=== PATIENT | female | born 2000 | race Caucasian/White ===

== ENCOUNTER 2019-09-25 15:40 | Emergency (ER) | payer OTHER ==
[2019-09-25 16:36] VITALS: BP 102/71
--- NOTE | 2019-09-25 16:49 | UC ---
Throat Pain/Nasal Jose Daniel HPI - HPI Summary HPI Summary: Pt presents with c/o sudden onset of ST and fever X 1 day. - History of Current Complaint Chief Complaint: UCGeneralIllness Stated Complaint: FEVER,VOMITTING,ST,CONGESTION Time Seen by Provider: 09/25/19 16:42 Hx Last Menstrual Period: "two weeks ago" ?: No Onset/Duration: Sudden Onset, Still Present Severity: Moderate Pain Intensity: 6 Cough: None Associated Signs & Symptoms: Positive: Nasal Discharge, Fever - Epiglottits Risk Factors Epiglottis Risk Factors: Sudden Onset - Allergies/Home Medications Allergies/Adverse Reactions: Allergies Allergy/AdvReac Type Severity Reaction Status Date / Time azithromycin [From Zithromax] Allergy "Scratchy Verified 09/25/19 16:31 Throat, Rash" Home Medications: Home Medications Acetaminophen [Acetaminophen Extra Strength] 500 mg PO Q6H PRN 09/25/19 [ History Confirmed 09/25/19] Albuterol 2.5MG/3ML (0.083%)* [Ventolin 2.5 MG/3 ML NEB.BRAD*] 2.5 mg INH Q6H PRN 09/25/19 [History Confirmed 09/25/19] Albuterol HFA INHALER* [Ventolin HFA Inhaler*] 1 - 2 puff INH Q4H PRN 09/25/19 [ History Confirmed 09/25/19] Dm/PE/Acetaminophen/Doxylamine [Vicks Dayquil-Nyquil Cold-Flu] 2 cap PO Q6H PRN 09/25/19 [History Confirmed 09/25/19] Norethindrone-Ethinyl Estrad [Alyacen 1-35 28 Tablet] 1 tab PO DAILY 09/25/19 [ History Confirmed 09/25/19] PMH/Surg Hx/FS Hx/Imm Hx Previously Healthy: Yes - Surgical History Surgical History: Yes Surgery Procedure, Year, and Place: Right Elbow Tendon Repair, 2015, [place] - Family History Known Family History: Positive: Cardiac Disease - Social History Occupation: Student - [employer] Lives: Dormitory/Roommates Alcohol Use: None Substance Use Type: None Smoking Status (MU): Never Smoked Tobacco Have You Smoked in the Last Year: No - Immunization History Vaccination Up to Date: Yes Review of Systems All Other Systems Reviewed And Are Negative: Yes Constitutional: Positive: Fever Skin: Positive: Negative Eyes: Positive: Negative ENT: Positive: Sore Throat, Sinus Congestion Respiratory: Positive: Negative Cardiovascular: Positive: Negative Gastrointestinal: Positive: Negative Genitourinary: Positive: Negative Motor: Positive: Negative Neurovascular: Positive: Negative Musculoskeletal: Positive: Negative Neurological: Positive: Negative Psychological: Positive: Negative Is Patient Immunocompromised?: No Physical Exam Triage Information Reviewed: Yes Appearance: Ill-Appearing Vital Signs: Initial Vital Signs Temp 99.8 F 09/25/19 16:28 Pulse 118 09/25/19 16:28 Resp 16 09/25/19 16:28 BP 102/71 09/25/19 16:28 Pulse Ox 100 09/25/19 16:28 Vital Signs Reviewed: Yes Eye Exam: Normal ENT: Positive: Pharyngeal erythema, Tonsillar swelling, Tonsillar exudate Dental Exam: Normal Neck exam: Normal Respiratory Exam: Normal Cardiovascular Exam: Normal Musculoskeletal Exam: Normal Neurological Exam: Normal Psychological Exam: Normal Skin Exam: Normal Throat Pain/Nasal Course/Dx - Differential Dx/Diagnosis Differential Diagnosis/HQI/PQRI: Mononucleosis, Pharyngitis, Tonsillitis Provider Diagnosis: Strep throat Discharge ED - Sign-Out/Discharge Documenting (check all that apply): Patient Departure All imaging exams completed and their final reports reviewed: No Studies - Discharge Plan Condition: Stable Disposition: HOME Prescriptions: Penicillin VK 500 MG TAB(NF) [Penicillin VK 500 mg Tab] 500 mg PO Q8H #30 tab Patient Education Materials: Strep Throat (ED), Safe Use of NSAIDs (ED) Forms: *School Release Referrals: [facility] [Outside] - If Needed No Primary Care Phys,NOPCP [Primary Care Provider] - If Needed - Billing Disposition and Condition Condition: STABLE Disposition: Home
== END 2019-09-25 16:57 | disposition home or self-care (01) ==
LOC: UCCORT 15:40
DX: J02.0 Streptococcal pharyngitis (principal); R11.10 Vomiting, unspecified; R09.81 Nasal congestion; Z88.1 Allergy status to other antibiotic agents
CPT/HCPCS: 87651; 99202; G0463